=== PATIENT | female | born 1995 | race African-American/Black ===

== ENCOUNTER 2017-03-28 21:58 | Emergency (ER) | payer OTHER ==
[~2017-03-28] VITALS: Ht 165.1 cm; Wt 56.7 kg
[2017-03-28] MEDS ORDERED: ROBAXIN-750750 MG PO (22:47)
[2017-03-28] MEDS ORDERED: IBUPROFEN600 MG ORAL (22:47)
[2017-03-28 23:00] VITALS: BP_SYST 112; BP_SYST 122; BP_DIAS 68; BP_DIAS 72
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
== END 2017-03-28 23:00 | disposition home or self-care (01) ==
LOC: EMR 22:35
DX: M79.605 Pain in left leg (principal)
CPT/HCPCS: 99284

== ENCOUNTER 2018-11-03 06:21 | Day surgery (SDC) | payer BC ==
[~2018-11-03] VITALS: Ht 165.1 cm; Wt 59.4 kg
[2018-11-03] VITALS (15 sets, daily range): BP systolic 99–125; BP diastolic 43–83
[~2018-11-03 06:21] MED LIST: IBUPROFEN600 MG ORAL; NKM; ROBAXIN-750750 MG PO
[2018-11-03] MEDS ORDERED: cefOXitin Sod 2 GM in D5W 110 ML IVPB SCH (07:00)
[2018-11-03] MEDS ORDERED: Ropivacaine 5mg/ml Vial 30ml INJ ONE (07:11)
[2018-11-03] MEDS ORDERED: Midazolam 2mg/2ml Inj ONE (07:13)
[2018-11-03] MEDS ORDERED: fentaNYL 100 mcg/2 mL IV ONE ×2 (07:13→10:04)
[2018-11-03] MEDS ORDERED: Propofol 200mg/20ml IV ONE (07:13)
[2018-11-03] MEDS ORDERED: Lidocaine 1% MPF 10mg/ml 5ml ONE (07:13)
[2018-11-03] MEDS ORDERED: ProvayBlue 5mg/ml 10ml amp INJ ONE (07:15)
[2018-11-03] MEDS ORDERED: Zemuron 50mg/5ml Inj IV ONE (07:24)
--- NOTE | 2018-11-03 07:28 | Anethesia Preoperative Eval ---
Anesthesia Pre-op PMH/ROS General Date of Evaluation: Nov 03, 2018 Time of Evaluation: 07:22 Anesthesiologist: Frida Johnston CRNA ASA Score: ASA 1 Mallampati Score Class I : Soft palate, uvula, fauces, pillars visible Class II: Soft palate, uvula, fauces visible Class III: Soft palate, base of uvula visible Class IV: Only hard plate visible Mallampati Classification: Class I Surgeon: Nohemi Diagnosis: Endometriosis Surgical Procedure: Hysteroscopy, D & C, LEFT ovarian cystectomy Anesthesia History: none Family History: no anesthesia problems Allergies: Coded Allergies: No Known Allergies (Unverified , 11/03/18) Medications: see eMAR Patient NPO?: Yes NPO Date: Nov 03, 2018 NPO Time: 00:00 Past Medical History Cardiovascular: Denies: HTN, CAD, [place], valve dz, arrhythmia, other Pulmonary: Denies: asthma, COPD, [place], other Gastrointestinal/Genitourinary: Reports: other - Endometriosis LEFT ovarian; Denies: GERD, CRI, ESRD Endocrine: Denies: DM, hypothyroidism, steroids, other HEENT: Denies: cataract (L), cataract (R), glaucoma, [place] (L), [place] (R), other Hematology/Immune: Reports: anemia; Denies: DVT, bleeding disorder, other Musculoskeletal/Integumentary: Denies: OA, RA, DJD, DDD, edema, other PMH Narrative: as above PSxH Narrative: no PSH Anesthesia Pre-op Phys. Exam Physician Exam Last Vital Signs Date Time Temp Pulse Resp B/P (MAP) Pulse Ox O2 Delivery O2 Flow Rate FiO2 11/03/18 06:57 97.2 68 18 105/68 100 Room Air Constitutional: NAD Neurologic: CN 2-12 intact Cardiovascular: RRR Respiratory: CTA Gastrointestinal: S/NT/ND Airway Exam Mallampati Score: Class I MO: full Neck: FROM TMD: > 3 FB ROM: full Teeth: intact Dentures: no upper, no lower Anesthesia Pre-op A/P Labs reviewed, see chart Urine Test Test 11/03/18 06:35 Urine HCG, Qualitative Negative (NEGATIVE) Risk Assessment & Plan Assessment: ASA 1, ok to proceed Plan: GETA Pre-Antibiotics Drug: Frida Nam CRNA Nov 03, 2018 07:28
[2018-11-03] MEDS ORDERED: LR 1000ml ONE (08:00)
[2018-11-03] MEDS ORDERED: Sterile Water Irrig 1000ml IRRIG ONE (08:00)
[2018-11-03] MEDS ORDERED: Hydromorphone 0.5mg/0.5ml inj IVP PRN (08:00)
[2018-11-03] MEDS ORDERED: Glycopyrrolate 0.2mg/ml 1ml Vial ONE (08:00)
[2018-11-03] MEDS ORDERED: Neostigmine 1mg/ml 10ml Inj ONE (08:00)
[2018-11-03] MEDS ORDERED: NS Irrig 1000ml ONE (08:00)
--- NOTE | 2018-11-03 08:08 | Pre-Procedure Note/Attestation ---
Pre-Procedure Note/Attestation Complete Prior to Procedure Planned Procedure: left Procedure Narrative: Left cystectomy, laser vaporization of endometriosis Indications for Procedure Pre-Operative Diagnosis: Left Endometrioma, Dysmenorrhea Attestation I attest that I discussed the nature of the procedure; its benefits; risks and complications; and alternatives (and the risks and benefits of such alternatives ), prior to the procedure, with the patient (or the patient's legal site safety representative). I attest that, if there was a reasonable possibility of needing a blood transfusion, the patient (or the patient's legal site safety representative) was given the [facility] standardized written summary, pursuant to the Iker Kitzmiller Blood Safety Act ([place] Health and Safety Code # 1645, as amended). I attest that I re-evaluated the patient just prior to the surgery and that there has been no change in the patient's H&P, except as documented below:NONE David Song MD Nov 03, 2018 08:08
[2018-11-03] MEDS ORDERED: Ketorolac 30mg Inj ONE (08:13)
[2018-11-03] MEDS ORDERED: Metoclopramide 10mg/2ml Inj ONE (08:13)
[2018-11-03] MEDS ORDERED: Dexamethasone 4mg/ml vial ONE (08:13)
--- NOTE | 2018-11-03 10:36 | Immediate Post-Op Evaluation ---
Immediate Post-Op Evalulation Immediate Post-Op Evalulation Procedure: Pelvicoscopy, hysteroscopy, ovarian cystecomy, CO2 laser Date of Evaluation: Nov 03, 2018 Time of Evaluation: 10:31 IV Fluids: LR 1800 ml Estimated Blood Loss: 50 ml Urinary Output: 75 ml Blood Pressure Systolic: 115 Blood Pressure Diastolic: 83 Pulse Rate: 87 Respiratory Rate: 24 O2 Sat by Pulse Oximetry: 98 Temperature (Fahrenheit): 97.8 Pain Score (1-10): 0 Nausea: No Vomiting: No Complications none Patient Status: awake, reacts, patent, extubated Hydration Status: adequate Drug: cefazolin 1000 mg Given Within 1 Hr of Incision: Yes Time Given: 08:00 Frida Johnston CRNA Nov 03, 2018 10:36
[2018-11-03] MEDS ORDERED: Meperidine 50mg/ml Inj(FOR RIGORS ONLY) ONE (10:38)
[2018-11-03] MEDS ORDERED: Meperidine 50mg/ml Inj(FOR RIGORS ONLY) IVP PRN (10:45)
--- NOTE | 2018-11-03 10:52 | Brief Operative Note ---
Immediate Post Operative Note Operative Note Pre-op Diagnosis: Left Endometrioma, Dysmenorrhea Procedure: VLP with Right Ovarian Cystectomy VLP with Right and Left Pelvic adhesiolysis VLP with Extensive Laser Enterolysis Video hysteroscopy with multiple polypectomy Post-op Diagnosis: Left Hydrosalpinx, Right Endometrioma, Extensive Bowel adhesions, Extensive pelvic adhesions, multiple uterine polyps Surgeon: David Ortez MD Vertical Lathe Operator: Nikole Giraldo MD Anesthesiologist: Frida Johnston MD Anesthesia: general Specimen: yes - Uterine Polyps, RIght Endometrioma capsule Complications: none Condition: stable Fluids: LR @125cc/ hr Estimated Blood Loss: minimal Drains: none Implant(s) used?: No David Ortez MD Nov 03, 2018 10:52
[2018-11-03] MEDS ORDERED: Norco 5mg/325mg tab ORAL PRN (11:00)
[2018-11-03] MEDS ORDERED: HYDROmorphone 1mg/ml Carpuject SUBQ PRN (11:00)
[2018-11-03] MEDS ORDERED: D5 1/2NS 1,000 ML IV SCH (11:00)
--- NOTE | 2018-11-03 11:50 | 48 Hour Post Anesthesia Eval ---
Post Anesthesia Evaluation Procedure: Pelvicoscopy, hysteroscopy, ovarian cystecomy, CO2 laser Date of Evaluation: Nov 03, 2018 Time of Evaluation: 11:49 Blood Pressure Systolic: 100 0: 51 Pulse Rate: 82 Respiratory Rate: 17 Temperature (Fahrenheit): 97.8 O2 Sat by Pulse Oximetry: 100 Airway: patent Nausea: No Vomiting: No Pain Intensity: 3 Hydration Status: adequate Cardiopulmonary Status: stable Mental Status/LOC: patient returned to baseline Follow-up Care/Observations: per Gyne Post-Anesthesia Complications: none Follow-up care needed: ready to discharge Frida Johnston CRNA Nov 03, 2018 11:50
--- NOTE | 2018-11-03 18:30 | Operative Note - Dictated ---
DATE OF OPERATION: 11/03/2018 PREOPERATIVE DIAGNOSIS: Pelvic ovarian endometrioma, dysmenorrhea, and menorrhagia. POSTOPERATIVE DIAGNOSES: Right ovarian endometrioma, left hydrosalpinx, severe intestinal adhesions, severe pelvic adhesions, endometrial polyps, multiple. PROCEDURE PERFORMED: Video hysteroscopy with multiple polypectomy, dilatation and curettage, video laser pelviscopy with right ovarian cystectomy, video laser pelviscopy with extensive enterolysis, video laser pelviscopy with vaporization of pelvic endometriosis with CO2 laser, video laser pelviscopy with lysis of pelvic, tubal and ovarian adhesions. SURGEON: David Song M.D. MOLDER TRIMMER: Nikole Giraldo M.D. ANESTHESIOLOGIST: Dr. Galicia. PROCEDURE IN DETAIL: After all the appropriate consents were signed, the patient was brought to the operating room, placed on table in supine position. General endotracheal anesthesia was induced without complication. The patient was then placed in a dorsal lithotomy position. Perineum, vagina and abdomen prepped and draped in the usual fashion for the procedure. The patient was then examined under anesthesia. The uterus appeared to be very immobile and the adnexa could not be well distinguished from the ureter. At this time, video hysteroscopy was undertaken after the uterus and cervix was dilated with cervical dilatation followed by video hysteroscope with visualization of the endometrial cavity. Immediately, multiple endometrial polypoid fragments were identified. These were coming primarily from the posterior floor of the uterus with adhesions from right anterior floor of the uterus. At this time, endometrial polypectomy was undertaken with polyp forceps, followed by a extensive curettage to deliver all of the polyps. The cavity was again visualized and found to be within normal limits after all the polyps were removed. Both ostia were visualized and the uterine manipulator was placed. Once this was completed, abdominal portion of the procedure was undertaken. The umbilical incision was made. Veress needle was advanced. The abdomen was insufflated to 15 mmHg. The trocar was then placed atraumatically and the pelvic contents were fully visualized. Two additional trocars were placed in the midline and in the left pelvic sidewall. At this time, the procedure continued with evaluation of the pelvis. There appeared to be multiple adhesions and the uterus was completely adhesed to the posterior cul-de-sac. The posterior cul-de-sac was not at all visible due to both the left and right adnexa completely adhesed in the midline and to the posterior pelvic floor. At this time, the procedure continued with visualizing the right pelvic sidewall that contained several areas of endometriosis and number of adhesions to the bowel. The right pelvic adhesions to the bowel continued all the way up to the liver. The appendix itself was visualized; however, it was covered with a loop of small bowel which was covering up most of the appendix. At this time, the enterolysis was undertaken and the bowel adhesed to the posterior cul-de-sac and to the adnexa and the cul-de-sac was elevated and the enterolysis was undertaken. Once this was fully undertaken, the adnexa was visualized and the ovarian stroma was seen extending from the right pelvic sidewall and adhesed in the midline with the left hydrosalpinx. Ovary was now elevated and appeared to be endometriosis fluid as the dissection opened the capsule and the dark endometriosis fluid was seen leaving the ovary. At this time, the ovary was opened further and ovarian capsule was entered with the suction data governance consultant and all of the brown endometrioma fluid was removed. At this time, the posterior portion of the ovary was severely attached to the posterior of the uterus as well as the posterior cul-de-sac. The ovary was placed on traction, countertraction, and gradually sharply dissected using CO2 laser and traction countertraction technique. This dissection continued for approximately 45 minutes. Once this was all completed, the ovary itself was elevated and the capsule of the endometrioma was grasped and with great difficulty, gradually removed from the ovarian stroma. This procedure took approximately 20 minutes as the ovary was completely over an ovarian stroma was completely stuck to the capsule. At this time, complete hemostasis was achieved in the right ovary and adnexa. The procedure was turned to the left tube and ovary. The tube fimbrial portion was fully stuck to the posterior cul-de-sac and the posterior of the uterus. Traction countertraction was again undertaken until the procedure was completed to remove the hydrosalpinx and fimbrial end from the posterior cul-de-sac and the posterior ureter. Once this was completed, the ovary on the left side was now visualized and it was also found to be completely stuck to the left pelvic sidewall. Again, traction countertraction was used along with sharp dissection to remove this ovary away from the pelvic sidewall and making it free. This left side dissection took approximately 45 minutes. The ovary itself was incised to assure that now endometrioma was present. The hydrosalpinx itself deflated once the tube was removed away from the posterior cul-de-sac and however, the tube itself appeared to be somewhat dilated. It is anticipated that the tube will decrease inside and become patent and once the inflammation goes down over time. At this time, the attention was turned to the right pelvic sidewall, the loop of small bowel, underlying appendix was elevated and bowel adhesions to the pelvic sidewall and to the pelvic floor were enterolysed. This was a very difficult process and both the ureter and underlying structure were found to be intact. This laser dissection was then continued to fully free the bowel from the pelvic sidewall along the right pelvic sidewall all the way up to the liver. The appendix was once again visualized and was found to be within normal limits and most of the appendix length was now visualized. At this time, the pelvis was once again visualized. Several areas of hemostasis was achieved. The pelvis was irrigated. Debris was suctioned. Instruments were now removed one after another under direct visualization with the laparoscope. The operative punctures were fully hemostatic. The laparoscoped was removed last and the umbilical puncture was fully hemostatic. Incisions were closed using 0 Vicryl suture at the fascia layer and Steri-Strips and benzoin at skin layer. The patient was placed in supine position and awakened from general anesthesia. She tolerated the procedure very well. David Song M.D. DR: Arturo JOB#: [id number] CC:
== END 2018-11-03 13:50 | disposition home or self-care (01) ==
LOC: SUR 06:21
DX: N80.1 Endometriosis of ovary (principal); N70.11 Chronic salpingitis; N94.6 Dysmenorrhea, unspecified; K66.0 Peritoneal adhesions (postprocedural) (postinfection); N73.6 Female pelvic peritoneal adhesions (postinfective); N84.0 Polyp of corpus uteri; D64.9 Anemia, unspecified
CPT/HCPCS: 58558; 58662; 81025; J0690; J1100; J1170; J1885; J2175; J2250; J2405; J2704; J2710; J2765; J2795; J3010; 94003; 94150